=== PATIENT | male | born 1995 | race Caucasian/White ===

== ENCOUNTER → 2017-01-28 | Emergency (ER) | payer SELFPAY ==
[~2017-01-28] VITALS: Ht 188 cm; Wt 85.3 kg
[~2017-01-28] MED LIST: NKM
--- NOTE | 2017-01-28 05:31 | Emergency Room Report ---
History of Present Illness General Chief Complaint: General Complaint Source: Patient Present Illness HPI A 21-year-old male brought in by police and EMS for side effect to medication. Patient said is not homeless. He was running and police pulled him over. He said that people were chasing him. He did admit to using Xanax. Police assumed that it was a side effect of Xanax and vitamin. Patient denies suicidal thought homicidal thought. Denies any hallucination. Did say that he was looking for his friend and was being chased by people. Allergies: Coded Allergies: No Known Allergies (Unverified , 01/28/17) Patient History Past Medical History: see triage record, old chart reviewed Past Surgical History: other Family History: none Social History: tobacco use Immunizations: other Reviewed Nursing Documentation: PMH: Agreed, PSxH: Agreed Nursing Documentation-PMH Past Medical History: No Stated History Review of Systems ENT: Denies: sore throat Cardiovascular: Denies: chest pain, palpitations Gastrointestinal/Abdominal: Denies: nausea, vomiting, diarrhea Musculoskeletal: Denies: back problems Skin: Denies: rash Neurological: Denies: MEDINA, seizures All Other Systems: negative except mentioned in HPI Physical Exam Vital Signs Date Time Temp Pulse Resp B/P (MAP) Pulse Ox O2 Delivery O2 Flow Rate FiO2 01/28/17 04:52 97.9 110 16 134/83 96 Room Air vitals with tachycardia Sp02 EP Interpretation: reviewed, normal General Appearance: alert/responsive, no apparent distress, non-toxic Head: normocephalic, atraumatic Eyes: PERRL, EOMI ENT: oropharynx normal Neck: supple/symm/no masses Respiratory: effort normal, no rhonchi, no wheezing Cardiovascular: no murmur, gallop, rub Gastrointestinal: non-tender, no mass, non-distended, no rebound/guarding, normal bowel sounds Musculoskeletal: gait & station normal Neurologic: oriented x3, sensory intact, motor strength/tone normal Skin: no rash, normal palpation Medical Decision Making Diagnostic Impression: Primary Impression: Xanax use disorder, mild, abuse Additional Impression: Paranoia (psychosis) ER Course Patient with a paranoia possible psychosis secondary to drug abuse. He freely made to abusing Xanax. No suicidal thought homicidal thought. Patient is otherwise stable. No criteria for 5150. He said is not homeless and will call a taxi home. This patient is a chronic risk of self injury due to poor impulse control, limited coping skills, and judgment intermittently impaired by intoxication. I believe that the available clinical evidence to suggest that these characteristics derived primarily from personality disorder and are likely very stable over time. Hospitalization would likely attenuate risk of self-harm only during [facility] period, without lasting risk reduction. Serious self-harm , while possible, would likely be inadvertent, and because of impulsivity, and foreseeable. For these reasons, I do not believe hospitalization would provide meaningful reduction in risk of self-harm. Last Vital Signs Date Time Temp Pulse Resp B/P (MAP) Pulse Ox O2 Delivery O2 Flow Rate FiO2 01/28/17 04:52 97.9 110 16 134/83 96 Room Air Status: improved Disposition: HOME, SELF-CARE Condition: Stable Additional Instructions: Stop using drugs. Followup with your Dr. in 7 days. Followup with mental health in 7 days. Return if worse. ASHUTOSH SNIDER M.D. Jan 28, 2017 05:31
[2017-01-28 05:39] VITALS: BP_SYST 129; BP_SYST 134; BP_DIAS 79; BP_DIAS 83
== END | disposition home or self-care (01) ==
LOC: EMR 05:05
DX: F13.20 Sedative, hypnotic or anxiolytic dependence, uncomplicated (principal); F22 Delusional disorders
CPT/HCPCS: 99283